=== PATIENT | female | born 1935 | race Caucasian/White ===

== ENCOUNTER 2016-12-15 12:47 | Emergency (ER) | payer MEDICARE ==
[~2016-12-15] VITALS: Wt 90.7 kg
[~2016-12-15 12:47] MED LIST: HYDROCODONE BIT1 T11 PO; LORAZEPAM1 MG PO; PERCOCET 325 MG1 TA2 PO; ZITHROMAX Z PA250 MG PO
[2016-12-15] MEDS ORDERED: LOSARTAN POTAS100 M1 PO (13:01)
[2016-12-15] MEDS ORDERED: SIMVASTATIN40 MG PO (13:02)
[2016-12-15] MEDS ORDERED: DULOXETINE HCL60 MG PO (13:02)
== END 2016-12-15 16:59 | disposition home or self-care (01) ==
LOC: ED 12:47
DX: S50.311A Abrasion of right elbow, initial encounter (principal); W10.9XXA Fall (on) (from) unspecified stairs and steps, initial encounter; Y93.89 Activity, other specified; Y92.9 Unspecified place or not applicable; Y99.9 Unspecified external cause status

== ENCOUNTER → 2017-08-10 | Outpatient (CLI) | payer MEDICARE ==
[~2017-08-10] MED LIST changes: +DULOXETINE HCL60 MG PO; +LOSARTAN POTAS100 M1 PO; +SIMVASTATIN40 MG PO
== END | disposition home or self-care (01) ==
LOC: US 11:00
DX: I70.201 Unspecified atherosclerosis of native arteries of extremities, right leg (principal); M81.0 Age-related osteoporosis without current pathological fracture; M47.898 Other spondylosis, sacral and sacrococcygeal region; M47.896 Other spondylosis, lumbar region; M54.9 Dorsalgia, unspecified

== ENCOUNTER → 2020-05-08 | Outpatient (CLI) | payer MEDICARE ==
[2020-05-08 12:45] LABS: BASO # 0.1 10*3/uL (0.0-0.1); BASO % 0.9 % (0.0-1.0); EOS # 0.1 10*3/uL (0.0-0.4); HEMATOCRIT 45.3 % (37.0-47.0); LYMPH % 28.8 % (27.0-41.0); MEAN CELL VOLUME 89.3 fl (81.0-99.0); MEAN CORPUSCULAR HGB 29.4 pg (27.0-31.0); MEAN CORPUSCULAR HGB CONC 32.9 g/dl (33.0-37.0); MEAN PLATELET VOLUME 10.3 fl (9.6-12.3); MONO # 0.5 10*3/uL (0.1-1.0); MONO % 7.5 % (3.0-9.0); NEUT # 4.3 10*3/uL (2.3-7.9); NEUT % 61.5 % (47.0-73.0); PLATELET COUNT AUTOMATED 244 10*3/uL (130-400); RED BLOOD COUNT 5.07 10*6/uL (4.10-5.10)
[2020-05-08 13:08] LABS: ALBUMIN 3.6 gm/dl (3.1-4.5); ALKALINE PHOSPHATASE 58 U/L (45-117); BUN 13 mg/dl (7-24); CHLORIDE 107 mmol/L (98-107); CHOLESTEROL 198 mg/dL (<200); CREATININE 0.77 mg/dL (0.55-1.02); FREE T4 1.27 ng/dl (0.76-1.46); HDL CHOLESTEROL 61 mg/dl (40-60); LDL CHOLESTEROL 96 mg/dL (9-159); POTASSIUM 3.8 mmol/L (3.5-5.1); SGOT/AST 19 IU/L (3-35); SGPT/ALT 16 U/L (12-78); SODIUM 140 mmol/L (136-145); TOTAL PROTEIN 7.6 gm/dL (6.4-8.2); TRIGLYCERIDES 204 mg/dl (<150); VLDL CHOLESTEROL 41 mg/dL (6-40)
[2020-05-08 13:40] LABS: VITAMIN D, 25-HYDROXY 12.2 ng/mL (30-100)
== END | disposition home or self-care (01) ==
LOC: LAB 11:05 → CARD 12:00
PROVIDERS: Internal Medicine
DX: I05.9 Rheumatic mitral valve disease, unspecified (principal); I31.3 Pericardial effusion (noninflammatory); I10 Essential (primary) hypertension; E78.2 Mixed hyperlipidemia; E55.9 Vitamin D deficiency, unspecified; Z00.00 Encounter for general adult medical examination without abnormal findings; J44.9 Chronic obstructive pulmonary disease, unspecified; J84.10 Pulmonary fibrosis, unspecified

== ENCOUNTER → 2020-06-15 | Outpatient (CLI) | payer MEDICARE | END | disposition home or self-care (01) | LOC: RAD 09:28 | PROVIDERS: ATTEND Internal Medicine | DX: M81.0 Age-related osteoporosis without current pathological fracture (principal); Z78.0 Asymptomatic menopausal state ==

== ENCOUNTER → 2020-09-24 | Outpatient (CLI) | payer MEDICARE | END | disposition home or self-care (01) | LOC: US 13:30 | PROVIDERS: ATTEND Internal Medicine | DX: R22.42 Localized swelling, mass and lump, left lower limb (principal) ==

== ENCOUNTER 2022-04-27 19:00 | Inpatient (IN) | payer MEDICARE ==
[~2022-04-27] VITALS: Ht 162.5 cm; Wt 79.1 kg
[~2022-04-27 19:00] MED LIST changes: +AMLODIPINE BESY10 MG PO; +ELIQUIS5 M1 PO; +METOPROLOL SUCC50 M1 PO; +NEURONTIN300 MG PO
[2022-04-27 19:11] VITALS: BP 131/69
[2022-04-27 20:07] LABS: BASO % 0.5 % (0.0-1.0); EOS % 0.1 % (1.0-4.0); HEMATOCRIT 41.5 % (37.0-47.0); LYMPH # 0.5 10*3/uL (1.3-4.4); LYMPH % 6.3 % (27.0-41.0); MEAN CELL VOLUME 89.2 fl (81.0-99.0); MEAN CORPUSCULAR HGB CONC 32.5 g/dl (33.0-37.0); MEAN PLATELET VOLUME 9.5 fl (9.6-12.3); MONO # 1.1 10*3/uL (0.1-1.0); MONO % 13.7 % (3.0-9.0); NEUT # 6.2 10*3/uL (2.3-7.9); PLATELET COUNT AUTOMATED 186 10*3/uL (130-400); RED BLOOD COUNT 4.65 10*6/uL (4.10-5.10); RED CELL DISTRI WIDTH 15.6 % (0-14.5); WHITE BLOOD COUNT 7.8 10*3/uL (4.8-10.8)
[2022-04-27 20:23] LABS: ALKALINE PHOSPHATASE 50 U/L (45-117); BUN 9 mg/dl (7-24); CHLORIDE 108 mmol/L (98-107); CREATININE 0.73 mg/dL (0.55-1.02); POTASSIUM 3.4 mmol/L (3.5-5.1); SGOT/AST 37 IU/L (3-35); SGPT/ALT 18 U/L (12-78); SODIUM 143 mmol/L (136-145); TOTAL PROTEIN 6.5 gm/dL (6.4-8.2)
[2022-04-27] MEDS ORDERED: MIRTAZAPINE15 M2 PO (20:54)
[2022-04-27] MEDS ORDERED: LASIX40 MG PO (20:59)
[2022-04-27 23:10] VITALS: BP 121/64
[2022-04-28 01:20] VITALS: BP 120/59
[2022-04-28 01:40] VITALS: BP 129/89
[2022-04-28 08:00] VITALS: BP 160/70
[2022-04-28 11:45] VITALS: BP 137/59
[2022-04-28 12:09] LABS: BILIRUBIN Negative (Negative); BLOOD Negative (Negative); CLARITY Clear (Clear); COLOR Yellow (Yellow); GLUCOSE Negative (Negative); KETONE 3+ (Negative); LEUKO ESTERASE Negative (Negative); NITRITE Negative (Negative)
[2022-04-28 12:17] LABS: BACTERIA TRACE; MUCOUS 1+; RBC 16-20 rbc/hpf (0-2)
[2022-04-28 16:00] VITALS: BP 114/53
[2022-04-28 20:00] VITALS: BP 145/68
[2022-04-29] VITALS: BP 152/77
[2022-04-29 06:14] LABS: BASO % 0.4 % (0.0-1.0); HEMATOCRIT 43.2 % (37.0-47.0); LYMPH # 2.1 10*3/uL (1.3-4.4); LYMPH % 28.3 % (27.0-41.0); MEAN CELL VOLUME 87.1 fl (81.0-99.0); MEAN CORPUSCULAR HGB 29.8 pg (27.0-31.0); MEAN CORPUSCULAR HGB CONC 34.3 g/dl (33.0-37.0); MEAN PLATELET VOLUME 10.2 fl (9.6-12.3); MONO # 0.9 10*3/uL (0.1-1.0); MONO % 11.6 % (3.0-9.0); NEUT # 4.5 10*3/uL (2.3-7.9); NEUT % 59.4 % (47.0-73.0); PLATELET COUNT AUTOMATED 170 10*3/uL (130-400); RED BLOOD COUNT 4.96 10*6/uL (4.10-5.10); RED CELL DISTRI WIDTH 15.8 % (0-14.5); WHITE BLOOD COUNT 7.5 10*3/uL (4.8-10.8)
[2022-04-29 06:15] LABS: BUN 11 mg/dl (7-24); CREATININE 0.58 mg/dL (0.55-1.02); SODIUM 138 mmol/L (136-145)
[2022-04-29 06:34] LABS: CHLORIDE 106 mmol/L (98-107)
[2022-04-29 08:00] VITALS: BP 135/99
[2022-04-29 12:00] VITALS: BP 115/70
[2022-04-29 16:00] VITALS: BP 100/61
[2022-04-29 20:00] VITALS: BP 144/77
[2022-04-30] VITALS: BP 129/67
[2022-04-30 12:00] VITALS: BP 114/60
[2022-04-30 16:00] VITALS: BP 118/57
[2022-04-30 20:00] VITALS: BP 131/67
[2022-05-01] VITALS: BP 130/55
[2022-05-01 04:51] LABS: ALKALINE PHOSPHATASE 40 U/L (45-117); BUN 17 mg/dl (7-24); CHLORIDE 107 mmol/L (98-107); CREATININE 0.64 mg/dL (0.55-1.02); SGOT/AST 39 IU/L (3-35); SGPT/ALT 20 U/L (12-78); SODIUM 137 mmol/L (136-145); TOTAL PROTEIN 5.9 gm/dL (6.4-8.2)
[2022-05-01 06:23] LABS: BASO % 0.3 % (0.0-1.0); EOS # 0.2 10*3/uL (0.0-0.4); EOS % 2.7 % (1.0-4.0); HEMATOCRIT 32.4 % (37.0-47.0); LYMPH # 1.7 10*3/uL (1.3-4.4); LYMPH % 29.6 % (27.0-41.0); MEAN CORPUSCULAR HGB 29.2 pg (27.0-31.0); MEAN CORPUSCULAR HGB CONC 32.4 g/dl (33.0-37.0); MEAN PLATELET VOLUME 10.4 fl (9.6-12.3); MONO # 0.7 10*3/uL (0.1-1.0); MONO % 12.6 % (3.0-9.0); NEUT # 3.2 10*3/uL (2.3-7.9); NEUT % 54.3 % (47.0-73.0); PLATELET COUNT AUTOMATED 205 10*3/uL (130-400); RED CELL DISTRI WIDTH 15.5 % (0-14.5); WHITE BLOOD COUNT 5.9 10*3/uL (4.8-10.8)
[2022-05-01 08:00] VITALS: BP 130/67
[2022-05-01 12:00] VITALS: BP 131/56
[2022-05-01 15:57] VITALS: BP 106/63
[2022-05-01 20:00] VITALS: BP 140/70
[2022-05-02] VITALS: BP 124/62
[2022-05-02 08:00] VITALS: BP 118/61
[2022-05-02 12:00] VITALS: BP 128/67
[2022-05-02 16:00] VITALS: BP 129/67
[2022-05-02 20:00] VITALS: BP 124/61
[2022-05-03 09:00] VITALS: BP 167/52
[2022-05-03 13:00] VITALS: BP 131/76
[2022-05-03 16:00] VITALS: BP 132/65
[2022-05-03 21:00] VITALS: BP 121/72
[2022-05-04] VITALS: BP 114/63
[2022-05-04 08:00] VITALS: BP 111/60
[2022-05-04 12:00] VITALS: BP 119/68
[2022-05-04 16:00] VITALS: BP 120/70
[2022-05-04 20:00] VITALS: BP 128/56
[2022-05-05] VITALS: BP 126/73
[2022-05-05 08:00] VITALS: BP 116/61
[2022-05-05 12:00] VITALS: BP 121/49
== END 2022-05-05 15:40 | DRG 178 ==
LOC: ED 19:00 → 4E 22:59 → EDHOLD 22:59 → 4E 04-28 01:26
PROVIDERS: Nurse Practitioner Family; ADMIT Internal Medicine; ATTEND Internal Medicine
DX: U07.1 COVID-19 (principal); E44.0 Moderate protein-calorie malnutrition; N39.0 Urinary tract infection, site not specified; F11.20 Opioid dependence, uncomplicated; Z96.653 Presence of artificial knee joint, bilateral; F41.1 Generalized anxiety disorder; G89.29 Other chronic pain; M54.50 Low back pain, unspecified; E78.2 Mixed hyperlipidemia; E87.6 Hypokalemia; R62.7 Adult failure to thrive; M47.896 Other spondylosis, lumbar region; R74.01 Elevation of levels of liver transaminase levels; Z68.29 Body mass index [BMI] 29.0-29.9, adult; Z90.710 Acquired absence of both cervix and uterus; Z89.411 Acquired absence of right great toe; Z82.49 Family history of ischemic heart disease and other diseases of the circulatory system